=== PATIENT | female | born 1930 | race Two or more races ===

== ENCOUNTER 2017-08-24 14:10 | Outpatient (CLI) | payer OTHER | END 2017-08-24 15:00 | disposition home or self-care (01) | LOC: SONOGRAMA 14:10 | DX: E04.2 Nontoxic multinodular goiter (principal) ==

== ENCOUNTER 2018-06-19 08:14 | Outpatient (CLI) | payer OTHER ==
[~2018-06-19 08:14] MED LIST: COZAAR25 MG; XARELTO10 MG
== END 2018-06-19 08:21 | disposition home or self-care (01) ==
LOC: SONOGRAMA 08:14
DX: I71.4 Abdominal aortic aneurysm, without rupture (principal)